=== PATIENT | female | born 1965 | race Two or more races ===

== ENCOUNTER 2018-04-30 12:57 | Emergency (ER) | payer MEDICAID ==
[~2018-04-30] VITALS: Ht 154.9 cm; Wt 72.1 kg
[2018-04-30 13:13] VITALS: Ht 154.9 cm; Wt 72.1 kg
[2018-04-30 15:18] VITALS: BP 126/63
== END 2018-04-30 15:18 | disposition home or self-care (01) ==
LOC: ED 12:57
DX: J02.9 Acute pharyngitis, unspecified (principal)